=== PATIENT | male | born 1970 | race Caucasian/White ===

== ENCOUNTER 2020-10-23 13:36 | Emergency (ER) | payer BC ==
[~2020-10-23] VITALS: Ht 175.3 cm; Wt 122.5 kg
[~2020-10-23 13:36] MED LIST: HYDROCODON-ACE1 EA11 PO; IBUPROFEN800 MG PO
--- NOTE | 2020-10-23 22:43 | EKG ---
[facility] [address] [facility] [place] [address] Signed Normal sinus rhythm with sinus arrhythmia Normal ECG No previous ECGs available Confirmed by LARISSA BILLINGS MD ([id number]) on 10/23/2020 10:42:59 PM Electronically Signed By: LARISSA BILLINGS MD 10/23/20 2243 PATIENT NAME: LUCA COLON Electrocardiogram DATE OF : 74 PHYSICIAN: LARISSA BILLINGS MD REPORT #: [id number] REPORT IS CONFIDENTIAL AND NOT TO BE RELEASED WITHOUT AUTHORIZATION
== END 2020-10-23 16:15 | disposition home or self-care (01) ==
LOC: ED 13:36
DX: R07.89 Other chest pain (principal); K80.20 Calculus of gallbladder without cholecystitis without obstruction; F17.200 Nicotine dependence, unspecified, uncomplicated
CPT/HCPCS: 71045; 71260; 80053; 83735; 84484; 85025; 85610; 93005; 93010; 99285-25

== ENCOUNTER 2025-01-14 21:39 | Emergency (ER) | payer BC ==
[~2025-01-14] VITALS: Ht 175.3 cm; Wt 141.5 kg
[~2025-01-14 21:39] MED LIST changes: +HYDROXYZINE HCL25 MG PO; +SERTRALINE HCL50 MG PO
[2025-01-14 22:04] LABS: BASOPHILS 0.5 % (0.2-1.2); EOSINOPHILS 0.7 % (0.8-7.0); HEMATOCRIT 41.6 % (40.1-51.0); HEMOGLOBIN 14.2 g/dL (13.7-17.5); LYMPHOCYTES 9.8 % (21.8-53.1); MCH 29.4 PG (25.7-32.2); MCHC 34.1 g/dL (32.3-36.5); MCV 86.1 fL (79.0-92.2); MONOCYTES 4.2 % (5.3-12.2); NEUTROPHILS 83.9 % (34.0-67.9); PLATELET COUNT 194 K/uL (163-337); RBC 4.83 M/uL (4.63-6.08)
[2025-01-14] MEDS ORDERED: KETOROLAC TROMETHAMINE 30 MG/ML VIAL IV ONE (22:15)
[2025-01-14] MEDS ORDERED: METOCLOPRAMIDE HCL 10 MG/2 ML SDV IV ONE (22:15)
[2025-01-14] MEDS ORDERED: diphenhydrAMINE HCL 50 MG/ML VIAL IV ONE (22:15)
[2025-01-14 22:17] LABS: ALBUMIN 3.3 g/dL (3.4-5.0); ALBUMIN/GLOBULIN RATIO 0.79 (1.1-2.4); BILIRUBIN, TOTAL 0.9 mg/dL (0.2-1.0); BUN/CREATININE RATIO 8.51 (6.0-28.6); CALCIUM 8.6 mg/dL (8.5-10.1); CREATININE, SERUM 1.41 mg/dL (0.70-1.30); PROTEIN, TOTAL 7.5 g/dL (6.4-8.2)
[2025-01-14 22:22] LABS: LACTIC ACID, BLOOD 2.5 mmol/L (0.4-2.0)
[2025-01-14] MEDS ORDERED: SODIUM CHLORIDE 0.9% 2,000 ML IV SCH (22:30)
[2025-01-14] MEDS ORDERED: HYDROmorphone HCL 1 MG/ML SYR IV PRN (22:30)
[2025-01-15 01:40] VITALS: BP 136/77
== END 2025-01-15 01:40 | disposition left against medical advice (07) ==
LOC: ED 21:39
PROVIDERS: Emergency Medicine
DX: R51.9 Headache, unspecified (principal); F17.200 Nicotine dependence, unspecified, uncomplicated; Z79.899 Other long term (current) drug therapy
CPT/HCPCS: 36415; 70450; 80053; 83605; 85025; 87040; 96361; 96374; 96375; 99284-25; J1171; J1200; J1885; J2765; J7030

== ENCOUNTER 2025-01-21 19:12 | Emergency (ER) | payer BC ==
[~2025-01-21] VITALS: Ht 175.3 cm; Wt 123.8 kg
--- OUTSIDE RECORDS SUMMARY | 2025-01-21 19:19 | XMS ---
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 E.Maurilio VISIT COUNT (12 MO.) [address] TOTAL 3 NOTE: Visits indicate total known visits. 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 Localized swelling, mass and lump, head - Localized swelling, mass and lump, head [email or web address]
[2025-01-21] MEDS ORDERED: METOPROLOL SUCC50 MG PO (19:41)
[2025-01-21] MEDS ORDERED: LACTATED RINGER'S 1,000 ML IV ONE ×2 (19:45→21:30)
[2025-01-21] MEDS ORDERED: KETOROLAC TROMETHAMINE 30 MG/ML VIAL IV ONE (19:45)
[2025-01-21] MEDS ORDERED: PROCHLORPERAZINE EDISYLATE 10 MG/2 ML VIAL IV ONE (19:45)
[2025-01-21] MEDS ORDERED: diphenhydrAMINE HCL 50 MG/ML VIAL IV ONE (19:45)
[2025-01-21] MEDS ORDERED: HYDROmorphone HCL 1 MG/ML SYR IV PRN (20:00)
[2025-01-21 20:02] LABS: BASOPHILS 0.5 % (0.2-1.2); EOSINOPHILS 0.5 % (0.8-7.0); HEMATOCRIT 38.9 % (40.1-51.0); HEMOGLOBIN 13.6 g/dL (13.7-17.5); LYMPHOCYTES 12.7 % (21.8-53.1); MCH 29.6 PG (25.7-32.2); MCV 84.7 fL (79.0-92.2); MONOCYTES 6.1 % (5.3-12.2); NEUTROPHILS 78.9 % (34.0-67.9); PLATELET COUNT 265 K/uL (163-337); RBC 4.59 M/uL (4.63-6.08)
[2025-01-21 20:18] LABS: ALBUMIN 3.3 g/dL (3.4-5.0); ALBUMIN/GLOBULIN RATIO 0.77 (1.1-2.4); ANION GAP 18.3 (7-21); BILIRUBIN, TOTAL 0.9 mg/dL (0.2-1.0); BUN/CREATININE RATIO 21.97 (6.0-28.6); CALCIUM 8.9 mg/dL (8.5-10.1); CREATININE, SERUM 0.91 mg/dL (0.70-1.30); MAGNESIUM 2.2 mg/dL (1.8-2.4); POTASSIUM 3.3 mmol/L (3.5-5.1); PROTEIN, TOTAL 7.6 g/dL (6.4-8.2)
[2025-01-21] MEDS ORDERED: hydrALAZINE HCL 20 MG/ML VIAL IV ONE (21:30)
[2025-01-21 22:38] LABS: BILIRUBIN, URINE NEGATIVE (negative); BLOOD/HGB, URINE NEGATIVE (Negative); KETONE, URINE SMALL (Negative); LEUK ESTERASE, URINE NEGATIVE (negative); NITRITE, URINE NEGATIVE (negative)
[2025-01-21 22:52] LABS: AMPHETAMINES, URINE NEGATIVE (NEGATIVE); BARBITURATES, URINE NEGATIVE (NEGATIVE); BENZODIAZEPINE, URINE NEGATIVE (NEGATIVE); BUPRENORPHINE, URINE NEGATIVE (NEGATIVE); CANNABINOID, URINE NEGATIVE (NEGATIVE); COCAINE, URINE NEGATIVE (NEGATIVE); ECSTASY, URINE NEGATIVE (NEGATIVE); FENTANYL, URINE NEGATIVE (NEGATIVE); METHADONE, URINE NEGATIVE (NEGATIVE); OPIATES, URINE NEGATIVE (NEGATIVE); OXYCODONE, URINE NEGATIVE (NEGATIVE); PHENCYCLIDINE, URINE NEGATIVE (NEGATIVE)
[2025-01-21 23:24] VITALS: BP 145/75
== END 2025-01-21 23:15 | disposition home or self-care (01) ==
LOC: ED 19:12
PROVIDERS: Internal Medicine
DX: G43.909 Migraine, unspecified, not intractable, without status migrainosus (principal); F17.200 Nicotine dependence, unspecified, uncomplicated; Z79.899 Other long term (current) drug therapy
CPT/HCPCS: 36415; 51702; 51798; 80053; 80307; 81003; 83735; 85025; 99284-25; J0360; J0780; J1200; J1885; J7121